=== PATIENT | male | born 1965 | race African-American/Black ===

== ENCOUNTER 2020-07-04 13:24 | Emergency (ER) | payer OTHER, MEDICARE ==
[~2020-07-04 13:24] MED LIST: CYCLOBENZAPRINE10 MG PO; TRAMADOL HCL50 MG PO
== END 2020-07-04 16:58 | disposition other institution (70) ==
LOC: FER 13:24
DX: S62.631B Displaced fracture of distal phalanx of left index finger, initial encounter for open fracture (principal); S60.312A Abrasion of left thumb, initial encounter; I10 Essential (primary) hypertension; J45.909 Unspecified asthma, uncomplicated; Z91.040 Latex allergy status; Z79.82 Long term (current) use of aspirin; Z79.899 Other long term (current) drug therapy; W29.3XXA Contact with powered garden and outdoor hand tools and machinery, initial encounter; Y92.009 Unspecified place in unspecified non-institutional (private) residence as the place of occurrence of the external cause
CPT/HCPCS: 73130